=== PATIENT | male | born 1935 | race Caucasian/White ===

== ENCOUNTER 2021-03-12 12:46 | Inpatient (IN) ==
--- NOTE | 2021-03-12 12:53 | Emergency Department Note ---
HPI General Chief complaint: Shortness of Breath/Dyspnea Stated complaint: shortness of breath, hypoxia Time Seen by Provider: 03/12/21 12:52 Source: patient and EMS Mode of arrival: EMS Limitations: no limitations History of Present Illness HPI Narrative: 85-year-old male with past medical history of CKD, hypertension, hyperlipidemia, and gout presenting with shortness of breath. Patient states that he has not felt "well" for the last few days. Apparently his neighbors called EMS because patient slid out of his recliner today. He was noted to be satting 82% on room air on EMS arrival. Patient endorses a nonproductive cough but denies fever, headache, chest pain, blurry vision, or abdominal pain. Denies dysuria or hematuria. He has chronic venous stasis changes of bilateral lower extremities which are unchanged. He has received the Covid vaccine. He denies any prior cardiac history. Not on anticoagulation. Related Data Home Medications Medication Instructions Recorded Confirmed cholecalciferol (vitamin D3) 50 2,000 unit PO QDAY cap 07/28/16 03/01/21 mcg (2,000 unit) capsule haxvhjtl-wmt-coutp acid 300 1 tab PO QDAY tab 07/28/16 03/01/21 mcg-lycopene 600 mcg-lutein 300 mcg tablet (Centrum Silver Men) vit C,E,zinc,copper-qiast3d 250 1 cap PO QDAY 05/02/18 03/01/21 mg-lutein 5 mg-zeaxanthin 1 mg capsule (Ocuvite Adult 50 Plus) flaxseed 1,000 mg capsule 1,200 mg PO BID cap 08/22/19 03/01/21 omega-3 fatty acids 1,000 mg 1,200 mg PO QDAY cap 06/09/20 03/01/21 capsule (Fish Oil Concentrate) Previous Rx's Medication Instructions Recorded bicalutamide 50 mg tablet (Casodex) 50 mg PO QDAY #30 tab 04/06/20 ramipril 10 mg capsule 10 mg PO QDAY #90 cap 07/08/20 amlodipine 5 mg tablet 5 mg PO QHS #90 tab 08/10/20 hydrochlorothiazide 25 mg tablet 25 mg PO QDAY #90 tab 08/10/20 hydrocodone 5 mg-acetaminophen 325 1 tab PO Q6H PRN #8 tab 12/31/20 mg tablet pravastatin 20 mg tablet 20 mg PO QHS #90 tab 03/10/21 Allergies Allergy/AdvReac Type Severity Reaction Status Date / Time No Known Drug Allergies Allergy Verified 03/01/21 11:28 Review of Systems ROS ROS Narrative: Narrative: Constitutional: Reports chills; Denies fever Eyes: Denies vision change ENT ED: Denies ear pain or throat pain Cardiovascular: Denies chest pain or palpitations Respiratory: Reports shortness of breath and cough Gastrointestinal: Denies abdominal pain, nausea or vomiting Genitourinary: Denies dysuria or frequency Musculoskeletal: Denies back pain or joint swelling Integumentary: Denies rash Neurological: Reports weakness; Denies headache, numbness or dizziness Psychiatric: Denies anxiety Endocrine: Reports fatigue Hematological/Lymphatic: Denies easy bleeding PFSH Narrative Patient History Narrative: Narrative: Medical/Surgical/Family History All Active Problems (Updated 03/12/21 @ 17:02 by Luis Webster MD) Dysmetabolic syndrome X (Chronic) Gout (Chronic) Hyperlipemia (Chronic) Hypertension, essential (Chronic) Obesity (Chronic) Hx of appendectomy (Acute) Hypertension (Chronic) Chronic Kidney Disease (Chronic) Kidney stone on left side (Acute) Sprain of finger of right hand (Acute) CKD (chronic kidney disease) stage 2, GFR 60-89 ml/min (Chronic) Benign hypertension with chronic kidney disease, stage II (Chronic) Vitamin D deficiency (Chronic) Gout due to renal impairment (Chronic) Hyperkalemia, diminished renal excretion (Acute) Nephrolithiasis (Chronic) Gout attack (Acute) Annual physical exam (Acute) Elevated PSA (Acute) BPH w urinary obs/LUTS (Acute) Prostate cancer (Acute) Medicare annual wellness visit, initial (Acute) Annual physical exam (Acute) Renal calculus, right (Acute) Right flank pain (Acute) Hydronephrosis, right (Acute) Acute urinary retention (Acute) Peripheral vascular disease of lower extremity with ulceration (Acute) Wound of right lower extremity (Acute) Abnormal heart rhythm (Acute) UTI (urinary tract infection) (Acute) CHF (congestive heart failure) (Acute) OSMANY (acute kidney injury) (Acute) Medical History Abnormal heart rhythm Annual physical exam Annual physical exam Benign hypertension with chronic kidney disease, stage II Chronic Kidney Disease CKD (chronic kidney disease) stage 2, GFR 60-89 ml/min Dysmetabolic syndrome X Elevated PSA Gout Gout due to renal impairment Hyperlipemia Hypertension Hypertension, essential Kidney stone on left side Medicare annual wellness visit, initial Nephrolithiasis Obesity Sprain of finger of right hand Vitamin D deficiency Wound of right lower extremity Surgical History History of surgery Finger- 07/2019 Hx of appendectomy Family History brother Malignant neoplasm Cardiac disease Social History Smoking Status: Former smoker Alcohol Intake Frequency: former alcohol drinker Exam Narrative Narrative: Narrative: General Limitations: no limitations General appearance: Present other (Sleepy but arousable) Head Head: Present atraumatic and normocephalic Eye Eye: Present normal appearance, PERRL and EOMI; Absent scleral icterus, conjunctival injection or nystagmus ENT ENT: Present normal oropharynx and mucous membranes dry Neck Neck: Present normal inspection, full ROM and trachea midline; Absent meningismus or lymphadenopathy Chest Chest: Present symmetric chest wall rise Respiratory Respiratory: Present other (Coarse breath sounds at bilateral bases); Absent respiratory distress, wheezes, stridor, accessory muscle use or prolonged expiratory phase Cardiovascular Cardiovascular: Present regular rate and irregular rhythm; Absent systolic murmur or diastolic murmur Adbominal Abdominal: Present soft; Absent distention, tenderness, guarding, rebound, rigidity or organomegaly Extremities Extremities: Present other (Bilateral venous stasis changes present); Absent pretibial edema Back Back: Present normal inspection; Absent CVA tenderness (R), CVA tenderness (L) or spinous process tenderness Neurological Neurological: Present alert, CN II-XII intact and other (Oriented x2); Absent motor sensory deficit Expanded Neurological Patient oriented to: Present person and place Speech: Absent expressive aphasia or dysarthria CRANIAL NERVES: EOM function (II, III, IV, ): Normal, facial sensation (V): Normal, facial palsy (VII): Normal, gag reflex (IX): Normal, spinal accessory function (XI): Normal and tongue deviation (XII): Normal CEREBELLAR FUNCTION: finger to nose: Normal Motor strength - LUE: 5/5 Motor strength - RUE: 5/5 Motor strength - LLE: 5/5 Motor strength - RLE: 5/5 UPPER MOTOR NEURON EXAM: olesya neglect: Normal SENSORY EXAM UPPER EXTREMITY: Normal: light touch SENSORY EXAM LOWER EXTREMITY: Normal: light touch Coma Scale Eye Opening: Spontaneous Coma Scale Motor Response: Obeys Commands Coma Scale Verbal Response: Oriented Coma Scale Total: 15 Psychiatric Psychiatric: Present normal affect and normal mood Skin Skin: Present warm (WNL) and dry Course Vital Signs Vital signs: Vital Signs Temperature 102.7 F H 03/12/21 12:47 Pulse Rate 62 03/12/21 12:47 Respiratory Rate 20 03/12/21 12:47 Blood Pressure 126/48 03/12/21 12:47 Pulse Oximetry (%) 87 L 03/12/21 12:47 Temperature 99.8 F H 03/12/21 15:06 Pulse Rate 65 03/12/21 16:41 Respiratory Rate 23 H 03/12/21 16:41 Blood Pressure 109/45 03/12/21 16:41 Pulse Oximetry (%) 96 03/12/21 16:41 MDM MDM Narrative Medical decision making narrative: 85-year-old male presenting with generalized weakness. He is noted to be febrile and hypoxic on room air on arrival to the ED. EKG shows second-degree AV block, Mobitz type I with no ischemic changes noted. Rapid Covid swab is negative. Will obtain labs, cultures, chest x-ray, and UA. Normal saline bolus and IV Tylenol given. Will continue to monitor. 1510: Labs notable for leukocytosis to 26.6 and creatinine of 2.2. Urine dip is consistent with infection, UA and urine culture sent. He was given additional normal saline bolus and appeared to spontaneously convert to sinus rhythm with first-degree AV block. 1g of IV Rocephin ordered. Troponin is mildly elevated, chest x-ray consistent with CHF. 1600: Will admit for UTI, OSMANY, and CHF exacerbation. Our hospital currently has no beds available, will wait for possible discharges and in the meantime look for hospitals willing to accept the patient. 1700: Patient signed out to luis a MELENDEZ, Dr. Sprague. Lab Data Lab results reviewed: Yes I reviewed the patient's lab results. Result diagrams: 03/12/21 13:00 03/12/21 13:00 Labs: Lab Results 03/12/21 03/12/21 03/12/21 Range/Units 13:00 13:00 13:00 WBC 26.6 H (4.5-11.0) K/mcL RBC 3.05 L (4.63-6.08) M/mcL Hgb 8.9 L (13.7-17.5) g/dL Hct 28.8 L (40.1-51.0) % MCV 94.4 (80.0-100.0) fL MCH 29.2 (26.0-34.0) pg MCHC 30.9 L (31.0-36.0) g/dL RDW 18.5 H (11.5-14.5) % Plt Count 317 (140-440) K/mcL MPV 11.0 H (7.4-10.4) fL Seg Neutrophils % 81 H (38-78) % Band Neutrophils % 13 H (0-10) % Lymphocytes % 5 L (15-49) % Metamyelocytes % 1 % Platelet Estimate Normal (Normal) RBC Morphology Normal (Normal) Sodium 138 (133-145) mmol/L Potassium 4.1 (3.3-5.1) mmol/L Chloride 101 (96-108) mmol/L Carbon Dioxide 23 (22-30) mmol/L Anion Gap 14.0 (8.0-16.0) BUN 25 H (8-23) mg/dL Creatinine 2.2 H (0.7-1.2) mg/dL GFR Calculation 26 Glucose 81 (70-105) mg/dL Calcium 8.3 L (8.6-10.4) mg/dL Total Bilirubin 0.4 (0.1-1.0) mg/dL AST 27 (<40) U/L ALT 8 (<40) U/L Alkaline Phosphatase 63 (39-117) U/L Troponin T (<0.03) ng/mL NT-Pro-B Natriuret Pep (<450.0) pg/mL Total Protein 6.8 (5.9-8.4) gm/dL Albumin 2.5 L (3.2-5.2) gm/dL Globulin 4.3 H (2.2-3.7) gm/dL Albumin/Globulin Ratio 0.6 L (1.0-2.3) Procalcitonin 8.99 H (<0.10) ng/mL 03/12/21 03/12/21 03/12/21 Range/Units 13:00 13:00 15:24 WBC (4.5-11.0) K/mcL RBC (4.63-6.08) M/mcL Hgb (13.7-17.5) g/dL Hct (40.1-51.0) % MCV (80.0-100.0) fL MCH (26.0-34.0) pg MCHC (31.0-36.0) g/dL RDW (11.5-14.5) % Plt Count (140-440) K/mcL MPV (7.4-10.4) fL Seg Neutrophils % (38-78) % Band Neutrophils % (0-10) % Lymphocytes % (15-49) % Metamyelocytes % % Platelet Estimate (Normal) RBC Morphology (Normal) Sodium (133-145) mmol/L Potassium (3.3-5.1) mmol/L Chloride (96-108) mmol/L Carbon Dioxide (22-30) mmol/L Anion Gap (8.0-16.0) BUN (8-23) mg/dL Creatinine (0.7-1.2) mg/dL GFR Calculation Glucose (70-105) mg/dL Calcium (8.6-10.4) mg/dL Total Bilirubin (0.1-1.0) mg/dL AST (<40) U/L ALT (<40) U/L Alkaline Phosphatase (39-117) U/L Troponin T 0.09 H* 0.09 H* (<0.03) ng/mL NT-Pro-B Natriuret Pep 5122.0 H (<450.0) pg/mL Total Protein (5.9-8.4) gm/dL Albumin (3.2-5.2) gm/dL Globulin (2.2-3.7) gm/dL Albumin/Globulin Ratio (1.0-2.3) Procalcitonin (<0.10) ng/mL ED POC Tests ED POC Tests: KAEL - SARS Antigen Negative EKG Data EKG #1: EKG attestation: Yes I reviewed and interpreted this EKG. EKG results narrative: Second-degree AV block, Mobitz type I at 74 bpm with right bundle branch block present. No ST elevation or depression noted EKG #2: EKG attestation: Yes I reviewed and interpreted this EKG. and Yes There are no EKG findings of acute coronary syndrome EKG results narrative: Sinus rhythm at 75 bpm with first-degree AV block and right bundle branch block. No ST elevation or depression. When compared to previous EKG there are: other (Converted to first-degree AV block from prior EKG which showed second-degree AV block type I) Discharge Plan Patient/Caregiver Discharge Instructions Pt seen by FEEDER DRIVER/PA only: No Clinical Impression: UTI (urinary tract infection), CHF (congestive heart failure), OSMANY (acute kidney injury) Patient Disposition: Still a Patient Condition: Fair Follow up with: Akbar Piña MD [Primary Care Provider] - Prescriptions: No Action bicalutamide [Casodex] 50 mg tablet 50 mg PO QDAY Qty: 30 12RF ramipril 10 mg capsule 10 mg PO QDAY Qty: 90 6RF amlodipine 5 mg tablet 5 mg PO QHS Qty: 90 6RF hydrochlorothiazide 25 mg tablet 25 mg PO QDAY Qty: 90 6RF pravastatin 20 mg tablet 20 mg PO QHS Qty: 90 1RF cholecalciferol (vitamin D3) 2,000 unit capsule 2,000 unit PO QDAY 0RF hzunlcol-gfi-CR-lycopen-lutein [Centrum Silver Men] 300-600-300 mcg tablet 1 tab PO QDAY 0RF Ocuvite Adult 50 Plus 250-5-1 mg capsule 1 cap PO QDAY 0RF flaxseed 1,000 mg capsule 1,000 mg capsule 1,200 mg PO BID 0RF hydrocodone-acetaminophen 5-325 mg tablet 1 tab PO Q6H PRN (Reason: pain) Qty: 8 0RF omega-3 fatty acids [Fish Oil Concentrate] 1,000 mg capsule 1,200 mg PO QDAY 0RF
[2021-03-12] MEDS ORDERED: 0.9 % SODIUM CHLORIDE 1,000 ML IV ONE ×2 (13:11→14:18)
[2021-03-12] MEDS ORDERED: ACETAMINOPHEN 650 MG/65 ML BAG IV ONE (13:11)
[2021-03-12] MEDS ORDERED: ACETAMINOPHEN 1,000 MG/100 ML BAG IV ONE (13:31)
--- NOTE | 2021-03-12 13:56 | XRay Report ---
HISTORY: Fever, weakness, short of breath and hypoxia FINDINGS: There are thin linear bands of scar tissue adjacent to both diaphragms. These are chronic stable finding. The heart is mildly enlarged and has increased in size since 09/22/20. The pulmonary vessels are enlarged. There is no consolidating infiltrate, edema, mass or pleural effusion. 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 Humeral head is impinged against the acromion which is indirect evidence of a rotator cuff tear. IMPRESSION: Mild congestive heart failure Interpreted and Authenticated by: Bipin Silva 03/12/21
[2021-03-12 13:58] LABS: Hematocrit 28.8 % (40.1-51.0); Hemoglobin 8.9 g/dL (13.7-17.5); Mean Cell Volume 94.4 fL (80.0-100.0); Mean Corpuscular HGB Conc 30.9 g/dL (31.0-36.0); Platelet Count 317 K/mcL (140-440); RBC 3.05 M/mcL (4.63-6.08); Red Cell Distribution Width 18.5 % (11.5-14.5); WBC 26.6 K/mcL (4.5-11.0)
[2021-03-12 14:30] LABS: ALT/SGPT 8 U/L (<40); AST/SGOT 27 U/L (<40); Albumin 2.5 gm/dL (3.2-5.2); Albumin/Globulin Ratio 0.6 (1.0-2.3); Alkaline Phosphatase 63 U/L (39-117); Bilirubin,Total 0.4 mg/dL (0.1-1.0); Blood Urea Nitrogen 25 mg/dL (8-23); Calcium 8.3 mg/dL (8.6-10.4); Carbon Dioxide 23 mmol/L (22-30); Chloride 101 mmol/L (96-108); Globulin 4.3 gm/dL (2.2-3.7); Glomerular Filtration Rate 26; Glucose 81 mg/dL (70-105)
[2021-03-12] MEDS ORDERED: PIPERACILLIN SODIUM/TAZOBACTAM 3.375 GM in DEXTROSE 5% IN WATER 50 ML IV ONE (14:48)
[2021-03-12 15:56] LABS: Band Neutrophils % 13 % (0-10); Lymphocytes % 5 % (15-49); Metamyelocytes % 1 %; Platelet Estimate NORMAL (Normal); RBC Morphology NORMAL (Normal); Segmented Neutrophils % 81 % (38-78)
[2021-03-12 17:28] LABS: Appearance,Urine Clear (Clear); Bilirubin,Urine Small mg/dL (Negative); Color,Urine Yellow; Culture Indicated,Urine yes; Glucose,Urine (UA) Negative (Negative); Ketones,Urine Negative (Negative); Leukocyte Esterase,Urine Large /uL (Negative); Nitrate,Urine Negative (Negative); PH,Urine 5.5 (5.0-9.0); Urine Blood Moderate ery/mcL (Negative); Urine RBC 23 /hpf (0-3); Urine Squamous Epithelial Cell 0 /hpf (0-4); Urine WBC > 182 /hpf (0-4); Urobilinogen,Urine Normal
--- NOTE | 2021-03-12 17:33 | Emergency Department Note ---
Course Vital Signs Vital signs: Vital Signs Temperature 39.3 C H 03/12/21 12:47 Pulse Rate 62 03/12/21 12:47 Respiratory Rate 20 03/12/21 12:47 Blood Pressure 126/48 03/12/21 12:47 Pulse Oximetry (%) 87 L 03/12/21 12:47 Temperature 37.7 C H 03/12/21 15:06 Pulse Rate 63 03/12/21 17:16 Respiratory Rate 23 H 03/12/21 17:16 Blood Pressure 103/49 03/12/21 17:16 Pulse Oximetry (%) 96 03/12/21 17:16 MDM MDM Narrative Medical decision making narrative: Patient with urinary sepsis signed out to me by Dr. Webster awaiting a bed here, is now admitted here. Lab Data Result diagrams: 03/12/21 13:00 03/12/21 13:00 Labs: Lab Results 03/12/21 03/12/21 03/12/21 Range/Units 13:00 13:00 13:00 WBC 26.6 H (4.5-11.0) K/mcL RBC 3.05 L (4.63-6.08) M/mcL Hgb 8.9 L (13.7-17.5) g/dL Hct 28.8 L (40.1-51.0) % MCV 94.4 (80.0-100.0) fL MCH 29.2 (26.0-34.0) pg MCHC 30.9 L (31.0-36.0) g/dL RDW 18.5 H (11.5-14.5) % Plt Count 317 (140-440) K/mcL MPV 11.0 H (7.4-10.4) fL Seg Neutrophils % 81 H (38-78) % Band Neutrophils % 13 H (0-10) % Lymphocytes % 5 L (15-49) % Metamyelocytes % 1 % Platelet Estimate Normal (Normal) RBC Morphology Normal (Normal) Sodium 138 (133-145) mmol/L Potassium 4.1 (3.3-5.1) mmol/L Chloride 101 (96-108) mmol/L Carbon Dioxide 23 (22-30) mmol/L Anion Gap 14.0 (8.0-16.0) BUN 25 H (8-23) mg/dL Creatinine 2.2 H (0.7-1.2) mg/dL GFR Calculation 26 Glucose 81 (70-105) mg/dL Calcium 8.3 L (8.6-10.4) mg/dL Total Bilirubin 0.4 (0.1-1.0) mg/dL AST 27 (<40) U/L ALT 8 (<40) U/L Alkaline Phosphatase 63 (39-117) U/L Troponin T (<0.03) ng/mL NT-Pro-B Natriuret Pep (<450.0) pg/mL Total Protein 6.8 (5.9-8.4) gm/dL Albumin 2.5 L (3.2-5.2) gm/dL Globulin 4.3 H (2.2-3.7) gm/dL Albumin/Globulin Ratio 0.6 L (1.0-2.3) Procalcitonin 8.99 H (<0.10) ng/mL Urine Color Urine Appearance (Clear) Urine pH (5.0-9.0) Ur Specific [place] (1.000-1.035) Urine Protein (Negative) mg/dL Urine Glucose (UA) (Negative) mg/dL Urine Ketones (Negative) mg/dL Urine Occult Blood (Negative) amy/mcL Urine Nitrate (Negative) Urine Bilirubin (Negative) mg/dL Urine Urobilinogen mg/dL Ur Leukocyte Esterase (Negative) /uL Urine RBC (0-3) /hpf Urine WBC (0-4) /hpf Ur Squamous Epith Cells (0-4) /hpf Urine Bacteria (0) /hpf Ur Culture Indicated? 03/12/21 03/12/21 03/12/21 Range/Units 13:00 13:00 14:30 WBC (4.5-11.0) K/mcL RBC (4.63-6.08) M/mcL Hgb (13.7-17.5) g/dL Hct (40.1-51.0) % MCV (80.0-100.0) fL MCH (26.0-34.0) pg MCHC (31.0-36.0) g/dL RDW (11.5-14.5) % Plt Count (140-440) K/mcL MPV (7.4-10.4) fL Seg Neutrophils % (38-78) % Band Neutrophils % (0-10) % Lymphocytes % (15-49) % Metamyelocytes % % Platelet Estimate (Normal) RBC Morphology (Normal) Sodium (133-145) mmol/L Potassium (3.3-5.1) mmol/L Chloride (96-108) mmol/L Carbon Dioxide (22-30) mmol/L Anion Gap (8.0-16.0) BUN (8-23) mg/dL Creatinine (0.7-1.2) mg/dL GFR Calculation Glucose (70-105) mg/dL Calcium (8.6-10.4) mg/dL Total Bilirubin (0.1-1.0) mg/dL AST (<40) U/L ALT (<40) U/L Alkaline Phosphatase (39-117) U/L Troponin T 0.09 H* (<0.03) ng/mL NT-Pro-B Natriuret Pep 5122.0 H (<450.0) pg/mL Total Protein (5.9-8.4) gm/dL Albumin (3.2-5.2) gm/dL Globulin (2.2-3.7) gm/dL Albumin/Globulin Ratio (1.0-2.3) Procalcitonin (<0.10) ng/mL Urine Color Yellow Urine Appearance Clear (Clear) Urine pH 5.5 (5.0-9.0) Ur Specific [place] 1.020 (1.000-1.035) Urine Protein 100 mg/dl A (Negative) mg/dL Urine Glucose (UA) Negative (Negative) mg/dL Urine Ketones Negative (Negative) mg/dL Urine Occult Blood Moderate A (Negative) amy/mcL Urine Nitrate Negative (Negative) Urine Bilirubin Small A (Negative) mg/dL Urine Urobilinogen Normal mg/dL Ur Leukocyte Esterase Large A (Negative) /uL Urine RBC 23 H (0-3) /hpf Urine WBC > 182 H (0-4) /hpf Ur Squamous Epith Cells 0 (0-4) /hpf Urine Bacteria None (0) /hpf Ur Culture Indicated? yes 03/12/21 Range/Units 15:24 WBC (4.5-11.0) K/mcL RBC (4.63-6.08) M/mcL Hgb (13.7-17.5) g/dL Hct (40.1-51.0) % MCV (80.0-100.0) fL MCH (26.0-34.0) pg MCHC (31.0-36.0) g/dL RDW (11.5-14.5) % Plt Count (140-440) K/mcL MPV (7.4-10.4) fL Seg Neutrophils % (38-78) % Band Neutrophils % (0-10) % Lymphocytes % (15-49) % Metamyelocytes % % Platelet Estimate (Normal) RBC Morphology (Normal) Sodium (133-145) mmol/L Potassium (3.3-5.1) mmol/L Chloride (96-108) mmol/L Carbon Dioxide (22-30) mmol/L Anion Gap (8.0-16.0) BUN (8-23) mg/dL Creatinine (0.7-1.2) mg/dL GFR Calculation Glucose (70-105) mg/dL Calcium (8.6-10.4) mg/dL Total Bilirubin (0.1-1.0) mg/dL AST (<40) U/L ALT (<40) U/L Alkaline Phosphatase (39-117) U/L Troponin T 0.09 H* (<0.03) ng/mL NT-Pro-B Natriuret Pep (<450.0) pg/mL Total Protein (5.9-8.4) gm/dL Albumin (3.2-5.2) gm/dL Globulin (2.2-3.7) gm/dL Albumin/Globulin Ratio (1.0-2.3) Procalcitonin (<0.10) ng/mL Urine Color Urine Appearance (Clear) Urine pH (5.0-9.0) Ur Specific [place] (1.000-1.035) Urine Protein (Negative) mg/dL Urine Glucose (UA) (Negative) mg/dL Urine Ketones (Negative) mg/dL Urine Occult Blood (Negative) amy/mcL Urine Nitrate (Negative) Urine Bilirubin (Negative) mg/dL Urine Urobilinogen mg/dL Ur Leukocyte Esterase (Negative) /uL Urine RBC (0-3) /hpf Urine WBC (0-4) /hpf Ur Squamous Epith Cells (0-4) /hpf Urine Bacteria (0) /hpf Ur Culture Indicated? ED POC Tests ED POC Tests: KAEL - SARS Antigen Negative Discharge Plan Patient/Caregiver Discharge Instructions Pt seen by PUBLIC POLICY COORDINATOR/PA only: No Clinical Impression: UTI (urinary tract infection), CHF (congestive heart failure), OSMANY (acute kidney injury) Patient Disposition: Xfer As Inpt ([facility]) Condition: Fair Follow up with: Akbar Piña MD [Primary Care Provider] - Prescriptions: No Action bicalutamide [Casodex] 50 mg tablet 50 mg PO QDAY Qty: 30 12RF ramipril 10 mg capsule 10 mg PO QDAY Qty: 90 6RF amlodipine 5 mg tablet 5 mg PO QHS Qty: 90 6RF hydrochlorothiazide 25 mg tablet 25 mg PO QDAY Qty: 90 6RF pravastatin 20 mg tablet 20 mg PO QHS Qty: 90 1RF cholecalciferol (vitamin D3) 2,000 unit capsule 2,000 unit PO QDAY 0RF ivycdhar-dtm-NF-lycopen-lutein [Centrum Silver Men] 300-600-300 mcg tablet 1 tab PO QDAY 0RF Ocuvite Adult 50 Plus 250-5-1 mg capsule 1 cap PO QDAY 0RF flaxseed 1,000 mg capsule 1,000 mg capsule 1,200 mg PO BID 0RF hydrocodone-acetaminophen 5-325 mg tablet 1 tab PO Q6H PRN (Reason: pain) Qty: 8 0RF omega-3 fatty acids [Fish Oil Concentrate] 1,000 mg capsule 1,200 mg PO QDAY 0RF
[2021-03-12] MEDS ORDERED: 0.9 % SODIUM CHLORIDE 500 ML IV ONE (18:29)
--- NOTE | 2021-03-12 18:59 | Internal Med History&Physical ---
HPI History of Present Illness Patient information: Note initiated : 03/12/21 at 6:30 pm Service Date, if different from initiated Date: [] Patient: Vinnie Alatorre 85 y/o M admitted on for shortness of breath, hypoxia. Chief Complaint: [] History of present illness: Mr. 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 The patient follows with urology and was last seen in clinic in February 2021 and was doing well at that time per the notes. The patient also follows with Dr. Hines in the wound care for his lower extremity wounds. The patient lives alone and spends his time working on wood projects and vehicles. The patient presented to the ED because he was not feeling well for the last few days. His neighbors called EMS because he slid out of his recliner. EMS noted the patient to be hypoxic with a sat uration of 82% on room air. In the ED the patient was found to be septic with a fever, hypotension, leukocytosis and an acute on chronic kidney disease injury. The patient does not have any complaints except he generally feels weak and has had urinary incontinence recently. Urinalysis was suggestive of a UTI. Chest xray showed mild congestive heart failure. Lactic acid was 2,4. The patient received Zosyn, IV fluid and oxygen supplementation via nasal canula. Hospital medicine was consulted to admit the patient. Review of systems Constitutional: positive for fatigue Eyes: no vision changes or pain Cardiovascular: no chest pain, no palpitations Respiratory: no cough or dyspnea Gastrointestinal: no abdominal pain, no nausea, vomiting, or diarrhea Genitourinary: positive for urinary incontinence Musculoskeletal: no arthralgia or myalgia Integumentary: positive for left lower extremity skin wound Neurological: no focal weakness or numbness Psychiatric: no anxiety or depression Physical exam Head: Atraumatic, normal inspection. Eyes: normal appearance, no scleral icterus. Neck: full ROM Respiratory: no respiratory distress, bibasilar crackles. Cardiovascular: normal rate and rhythm, S1, S2. GI/Abdominal: soft, nontender, no guarding. Extremities: full range of motion, nontender. Neurological: CN II-XII intact, intact motor, intact sensation. Psychiatric: normal mood. Skin: bilateral lower extremity venous stasis, wound on left lateral leg PFSH PFSH All Active Problems (Updated 03/12/21 @ 17:02 by Luis Webster MD) Dysmetabolic syndrome X (Chronic) Gout (Chronic) Hyperlipemia (Chronic) Hypertension, essential (Chronic) Obesity (Chronic) Hx of appendectomy (Acute) Hypertension (Chronic) Chronic Kidney Disease (Chronic) Kidney stone on left side (Acute) Sprain of finger of right hand (Acute) CKD (chronic kidney disease) stage 2, GFR 60-89 ml/min (Chronic) Benign hypertension with chronic kidney disease, stage II (Chronic) Vitamin D deficiency (Chronic) Gout due to renal impairment (Chronic) Hyperkalemia, diminished renal excretion (Acute) Nephrolithiasis (Chronic) Gout attack (Acute) Annual physical exam (Acute) Elevated PSA (Acute) BPH w urinary obs/LUTS (Acute) Prostate cancer (Acute) Medicare annual wellness visit, initial (Acute) Annual physical exam (Acute) Renal calculus, right (Acute) Right flank pain (Acute) Hydronephrosis, right (Acute) Acute urinary retention (Acute) Peripheral vascular disease of lower extremity with ulceration (Acute) Wound of right lower extremity (Acute) Abnormal heart rhythm (Acute) UTI (urinary tract infection) (Acute) CHF (congestive heart failure) (Acute) OSMANY (acute kidney injury) (Acute) Medical History Abnormal heart rhythm Annual physical exam Annual physical exam Benign hypertension with chronic kidney disease, stage II Chronic Kidney Disease CKD (chronic kidney disease) stage 2, GFR 60-89 ml/min Dysmetabolic syndrome X Elevated PSA Gout Gout due to renal impairment Hyperlipemia Hypertension Hypertension, essential Kidney stone on left side Medicare annual wellness visit, initial Nephrolithiasis Obesity Sprain of finger of right hand Vitamin D deficiency Wound of right lower extremity Surgical History History of surgery Finger- 07/2019 Hx of appendectomy Family History brother Malignant neoplasm Cardiac disease Social History marital status: single alcohol intake frequency: former alcohol drinker MEDS/ALLERGIES Home Medications and Allergies Home Medications Medication Instructions Recorded Confirmed Type cholecalciferol (vitamin D3) 50 2,000 unit PO QDAY cap 07/28/16 03/12/21 History mcg (2,000 unit) capsule [id number] acid 300 1 tab PO QDAY tab 07/28/16 03/12/21 History mcg-lycopene 600 mcg-lutein 300 mcg tablet (Centrum Silver Men) vit C,E,zinc,copper-tkisn0a 250 1 cap PO QDAY 05/02/18 03/12/21 History mg-lutein 5 mg-zeaxanthin 1 mg capsule (Ocuvite Adult 50 Plus) flaxseed 1,000 mg capsule 1,200 mg PO BID cap 08/22/19 03/12/21 History bicalutamide 50 mg tablet (Casodex) 50 mg PO QDAY #30 tab 04/06/20 03/12/21 Rx omega-3 fatty acids 1,000 mg 1,200 mg PO QDAY cap 06/09/20 03/12/21 History capsule (Fish Oil Concentrate) ramipril 10 mg capsule 10 mg PO QDAY #90 cap 07/08/20 03/12/21 Rx amlodipine 5 mg tablet 5 mg PO QHS #90 tab 08/10/20 03/12/21 Rx hydrochlorothiazide 25 mg tablet 25 mg PO QDAY #90 tab 08/10/20 03/12/21 Rx hydrocodone 5 mg-acetaminophen 325 1 tab PO Q6H PRN #8 tab 12/31/20 03/12/21 Rx mg tablet pravastatin 20 mg tablet 20 mg PO QHS #90 tab 03/10/21 03/12/21 Rx Allergies Allergy/AdvReac Type Severity Reaction Status Date / Time No Known Drug Allergies Allergy Verified 03/01/21 11:28 EXAM Constitutional Vitals: Temp Pulse Resp BP Pulse Ox 99.8 F H 62 19 101/51 96 03/12/21 15:06 03/12/21 17:47 03/12/21 17:47 03/12/21 17:47 03/12/21 17:47 DATA Data Completed and Pending Labs: Labs from last 24 hours 03/12/21 03/12/21 03/12/21 15:24 14:30 13:00 WBC RBC Hgb Hct MCV MCH MCHC RDW Plt Count MPV Seg Neutrophils % Band Neutrophils % Lymphocytes % Metamyelocytes % Platelet Estimate RBC Morphology Sodium Potassium Chloride Carbon Dioxide Anion Gap BUN Creatinine GFR Calculation Glucose Calcium Total Bilirubin AST ALT Alkaline Phosphatase Troponin T 0.09 H* NT-Pro-B Natriuret Pep 5122.0 H Total Protein Albumin Globulin Albumin/Globulin Ratio Procalcitonin Urine Color Yellow Urine Appearance Clear Urine pH 5.5 Ur Specific [place] 1.020 Urine Protein 100 mg/dl A Urine Glucose (UA) Negative Urine Ketones Negative Urine Occult Blood Moderate A Urine Nitrate Negative Urine Bilirubin Small A Urine Urobilinogen Normal Ur Leukocyte Esterase Large A Urine RBC 23 H Urine WBC > 182 H Ur Squamous Epith Cells 0 Urine Bacteria None Ur Culture Indicated? yes 03/12/21 03/12/21 03/12/21 13:00 13:00 13:00 WBC RBC Hgb Hct MCV MCH MCHC RDW Plt Count MPV Seg Neutrophils % Band Neutrophils % Lymphocytes % Metamyelocytes % Platelet Estimate RBC Morphology Sodium 138 Potassium 4.1 Chloride 101 Carbon Dioxide 23 Anion Gap 14.0 BUN 25 H Creatinine 2.2 H GFR Calculation 26 Glucose 81 Calcium 8.3 L Total Bilirubin 0.4 AST 27 ALT 8 Alkaline Phosphatase 63 Troponin T 0.09 H* NT-Pro-B Natriuret Pep Total Protein 6.8 Albumin 2.5 L Globulin 4.3 H Albumin/Globulin Ratio 0.6 L Procalcitonin 8.99 H Urine Color Urine Appearance Urine pH Ur Specific [place] Urine Protein Urine Glucose (UA) Urine Ketones Urine Occult Blood Urine Nitrate Urine Bilirubin Urine Urobilinogen Ur Leukocyte Esterase Urine RBC Urine WBC Ur Squamous Epith Cells Urine Bacteria Ur Culture Indicated? 03/12/21 13:00 WBC 26.6 H RBC 3.05 L Hgb 8.9 L Hct 28.8 L MCV 94.4 MCH 29.2 MCHC 30.9 L RDW 18.5 H Plt Count 317 MPV 11.0 H Seg Neutrophils % 81 H Band Neutrophils % 13 H Lymphocytes % 5 L Metamyelocytes % 1 Platelet Estimate Normal RBC Morphology Normal Sodium Potassium Chloride Carbon Dioxide Anion Gap BUN Creatinine GFR Calculation Glucose Calcium Total Bilirubin AST ALT Alkaline Phosphatase Troponin T NT-Pro-B Natriuret Pep Total Protein Albumin Globulin Albumin/Globulin Ratio Procalcitonin Urine Color Urine Appearance Urine pH Ur Specific [place] Urine Protein Urine Glucose (UA) Urine Ketones Urine Occult Blood Urine Nitrate Urine Bilirubin Urine Urobilinogen Ur Leukocyte Esterase Urine RBC Urine WBC Ur Squamous Epith Cells Urine Bacteria Ur Culture Indicated? 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 The patient has a wound on his left leg that is a potential source of sepsis however there does not appear to be cellulitis in that area. Additionally the patient has an acute on chronic kidney disease injury and appears to be in mild congestive heart failure. #Severe sepsis likely secondary to complicated UTI #Acute hypoxic respiratory failure secondary to heart failure (unspecified) #Acute on chronic kidney disease injury #Mildly elevated troponin secondary to type II UT due to sepsis #Generalized weakness secondary to sepsis #Left lower extremity wound (less likely to be the source of sepsis) #Essential hypertension #Hyperlipidemia #History of Mobitz II #History of renal stones #History of gout #Prostate cancer on androgen deprivation therapy Plan: -Continue Zosyn IV for now for complicated UTI and recent urologic procedures. -Continue IV fluid for severe sepsis and hypotension. -Follow urine and blood cultures. -Follow renal function and urine output. -Monitor volume status. -Consider renal imaging if OSMANY does not resolve. -TTE ordered. -Hold home antihypertensives. -Continue home Pravastatin and Bicalutamide. -pvc monitor -PT consult. -DVT ppx: heparin SQ -Code status: DNR/DNI -Disposition: will depend on improvement in generalized weakness, the patient lives alone. Time Spent With Patient Time: Total time spent is greater than 50% in coordination of care (as documented) at patient's floor/unit and/or counseling patient:
[2021-03-12] MEDS ORDERED: ONDANSETRON 4 MG/2 ML VIAL IV PRN (19:55)
[2021-03-12] MEDS ORDERED: SENNOSIDES 1 TABLET PO PRN (19:55)
[2021-03-12] MEDS ORDERED: LACTULOSE 20 GM/30 ML ORAL.SOL PO PRN (19:55)
[2021-03-12] MEDS: 0.9 % SODIUM CHLORIDE 10 ML SYRINGE IV SCH (20:36)
[2021-03-12] MEDS: SIMVASTATIN 10 MG TABLET PO SCH (21:35)
[2021-03-12] MEDS: DOCUSATE SODIUM 100 MG CAPSULE PO SCH (21:35)
[2021-03-12] MEDS: FLAXSEED PO SCH (21:36)
[2021-03-12] MEDS: PIPERACILLIN SODIUM/TAZOBACTAM 4.5 GM in DEXTROSE 5% IN WATER 50 ML IV SCH (21:36)
[2021-03-12] MEDS: HEPARIN 5,000 UNIT/ML VIAL SQ SCH (21:36)
[2021-03-12 22:52] LABS: ALT/SGPT 10 U/L (<40); AST/SGOT 36 U/L (<40); Albumin 2.4 gm/dL (3.2-5.2); Albumin/Globulin Ratio 0.6 (1.0-2.3); Alkaline Phosphatase 60 U/L (39-117); Bilirubin,Direct < 0.2 mg/dL (0-0.3); Bilirubin,Total 0.3 mg/dL (0.1-1.0); Blood Urea Nitrogen 25 mg/dL (8-23); Calcium 8.2 mg/dL (8.6-10.4); Carbon Dioxide 24 mmol/L (22-30); Chloride 104 mmol/L (96-108); Globulin 4.3 gm/dL (2.2-3.7); Glomerular Filtration Rate 26; Glucose 88 mg/dL (70-105); Lactate Dehydrogenase 220 U/L (135-225); Phosphorous 4.5 mg/dL (2.5-4.5); Triglycerides 88 mg/dL (<150); Uric Acid 8.1 mg/dL (2.5-8.0)
[2021-03-13] MEDS ORDERED: MAGNESIUM SULFATE 2 GM/50 ML BAG IV ONE ×2 (00:50→02:12)
[2021-03-13] MEDS: 0.9 % SODIUM CHLORIDE 10 ML SYRINGE IV SCH ×6 (02:17→23:35)
[2021-03-13] MEDS: ACETAMINOPHEN 325 MG TABLET PO PRN ×2 (05:05→23:35)
[2021-03-13] MEDS: PIPERACILLIN SODIUM/TAZOBACTAM 4.5 GM in DEXTROSE 5% IN WATER 50 ML IV SCH (05:21)
[2021-03-13 07:38] LABS: Hematocrit 27.3 % (40.1-51.0); Hemoglobin 8.6 g/dL (13.7-17.5); Mean Cell Volume 94.8 fL (80.0-100.0); Mean Corpuscular HGB Conc 31.5 g/dL (31.0-36.0); Mean Platelet Volume 10.7 fL (7.4-10.4); Platelet Count 263 K/mcL (140-440); RBC 2.88 M/mcL (4.63-6.08); Red Cell Distribution Width 18.7 % (11.5-14.5); WBC 27.9 K/mcL (4.5-11.0)
[2021-03-13 07:56] LABS: Iron 6 ug/dL (61-157); TIBC Calculation 136 ug/dl (228-428); Transferrin % Saturation 4 % (20-50)
[2021-03-13 08:27] LABS: Albumin 2.5 gm/dL (3.2-5.2); Calcium 8.2 mg/dL (8.6-10.4); Phosphorous 3.9 mg/dL (2.5-4.5)
[2021-03-13] MEDS: HEPARIN 5,000 UNIT/ML VIAL SQ SCH ×2 (08:41→21:06)
[2021-03-13] MEDS: DOCUSATE SODIUM 100 MG CAPSULE PO SCH ×2 (08:41→21:06)
[2021-03-13] MEDS: MULTIVIT,THER IRON,CA,FA & MIN 1 TABLET PO SCH (08:41)
[2021-03-13] MEDS: FLAXSEED PO SCH ×2 (08:42→21:06)
[2021-03-13] MEDS: BICALUTAMIDE 50 MG TABLET PO SCH ×2 (08:44→09:08)
[2021-03-13 09:35] LABS: Anisocytosis 2+ (None Seen); Band Neutrophils % 14 % (0-10); Lymphocytes % 7 % (15-49); Monocytes % (Manual) 5 % (1-12); Platelet Estimate NORMAL (Normal); RBC Morphology ABNORMAL (Normal); Segmented Neutrophils % 74 % (38-78)
[2021-03-13] MEDS ORDERED: CEFEPIME 1 GM VIAL IV SCH (10:00)
[2021-03-13] MEDS ORDERED: NOREPINEPHRINE BITARTRATE 16 MG in 0.9 % SODIUM CHLORIDE 234 ML IV SCH (12:30)
[2021-03-13] MEDS ORDERED: 0.9 % SODIUM CHLORIDE 250 ML IV PRN (12:30)
--- NOTE | 2021-03-13 15:11 | Internal Med Progress Note ---
SUBJECTIVE Subjective Patient information: Note initiated : 03/13/21 at 3:09 pm Service Date, if different from initiated Date: [] Patient: Vinnie Alatorre 85 y/o M admitted on 03/12/21 for shortness of breath, hypoxia. Chief Complaint: [] Interval history: Mr. 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 The patient follows with urology and was last seen in clinic in February 2021 and was doing well at that time per the notes. The patient also follows with Dr. Hines in the wound care for his lower extremity wounds. The patient lives alone and spends his time working on wood projects and vehicles. The patient presented to the ED because he was not feeling well for the last few days. His neighbors called EMS because he slid out of his recliner. EMS noted the patient to be hypoxic with a saturation of 82% on room air. In the ED the patient was found to be septic with a fever, hypotension, leukocytosis and an acute on chronic kidney disease injury. The patient does not have any complaints except he generally feels weak and has had urinary incontinence recently. Urinalysis was suggestive of a UTI. Chest xray showed mild congestive heart failure. Lactic acid was 2,4. The patient received Zosyn, IV fluid and oxygen supplementation via nasal canula. Hospital medicine was consulted to admit the patient. 03/13 2 blood cultures growing gram negative bacillus, CT KUB (no contrast) showed two left ureteral stones and left hydronephrosis as well as cholelithiasis and findings suspicious for cholecystitis and choledocholithiasis. Urine culture pending. Point of care ultrasound exam did not elicit a sonographic guillermo's signs. Suspect UTI to be the cause of the patient's sepsis. 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 Discussed with urology, Dr. Freitas, who recommended transfer to a higher level of care for urgent intervention either by urology or interventional radiology. Physical exam Head: Atraumatic, normal inspection. Eyes: normal appearance, no scleral icterus. Neck: full ROM Respiratory: no respiratory distress, bibasilar crackles. Cardiovascular: normal rate and rhythm, S1, S2. GI/Abdominal: soft, nontender, no guarding. Extremities: full range of motion, nontender. Neurological: CN II-XII intact, intact motor, intact sensation. Psychiatric: normal mood. Skin: bilateral lower extremity venous stasis, wound on left lateral leg Constitutional Vitals: Vital Signs Temp Pulse Resp BP Pulse Ox 97.2 F 87 20 93/52 93 03/13/21 12:01 03/13/21 08:03 03/13/21 12:01 03/13/21 12:01 03/13/21 12:01 Period Temp Pulse Resp BP Sys/Luna Pulse Ox Last 24 Hr 97.2 F-99.9 F 33-92 14-29 93-135/27-95 92-99 Intake and Output 03/13/21 03/13/21 03/13/21 05:59 13:59 21:59 Intake Total 720 50 Output Total 527 Balance 193 50 Intake & Output: Intake & Output 03/13/21 03/13/21 03/13/21 05:59 13:59 21:59 Intake Total 720 50 Output Total 527 Balance 193 50 Intake: IV 600 50 Sodium Chloride 0.9% 500 ml @ 500 Wide Open IV BOLUS ONE Rx#: [id number] Zosyn 4.5 gm In Dextrose 5% in 50 50 Water 50 ml @ 100 mls/hr IV Q8H [facility] Rx#:[id number] Oral 120 Output: Void Amount 525 # of times incontinent of urine 2 Other: Meal Breakfast Percent of Meal Consumed 50% Feeding Ability Independent Urine Appearance Clear Urine Color Bright Yellow Urine Odor Normal Stool Size Small Large Stool Color Brown Brown Yellow Stool Consistency Loose Soft # Bowel Movements 1 1 # of times incontinent of 1 1 Bowels OBJ DATA Labs CBC & Chem 7: 03/13/21 05:30 03/13/21 05:30 Labs: Abnormal Lab Results 03/13/21 03/13/21 03/13/21 05:30 05:30 05:30 WBC 27.9 H RBC 2.88 L Hgb 8.6 L Hct 27.3 L MCHC RDW 18.7 H MPV 10.7 H Seg Neutrophils % Band Neutrophils % 14 H Lymphocytes % 7 L RBC Morphology Abnormal A Anisocytosis 2+ A BUN 28 H Creatinine 2.6 H Glucose 69 L Uric Acid Calcium 8.2 L Magnesium Iron 6 L TIBC 136 L Transferrin % Sat 4 L Troponin T NT-Pro-B Natriuret Pep Albumin 2.5 L Globulin Albumin/Globulin Ratio Procalcitonin Urine Protein Urine Occult Blood Urine Bilirubin Ur Leukocyte Esterase Urine RBC Urine WBC 03/12/21 03/12/21 03/12/21 20:16 15:24 14:30 WBC RBC Hgb Hct MCHC RDW MPV Seg Neutrophils % Band Neutrophils % Lymphocytes % RBC Morphology Anisocytosis BUN 25 H Creatinine 2.2 H Glucose Uric Acid 8.1 H Calcium 8.2 L Magnesium 1.5 L Iron TIBC Transferrin % Sat Troponin T 0.09 H* NT-Pro-B Natriuret Pep Albumin 2.4 L Globulin 4.3 H Albumin/Globulin Ratio 0.6 L Procalcitonin Urine Protein 100 mg/dl A Urine Occult Blood Moderate A Urine Bilirubin Small A Ur Leukocyte Esterase Large A Urine RBC 23 H Urine WBC > 182 H 03/12/21 03/12/21 03/12/21 13:00 13:00 13:00 WBC RBC Hgb Hct MCHC RDW MPV Seg Neutrophils % Band Neutrophils % Lymphocytes % RBC Morphology Anisocytosis BUN Creatinine Glucose Uric Acid Calcium Magnesium Iron TIBC Transferrin % Sat Troponin T 0.09 H* NT-Pro-B Natriuret Pep 5122.0 H Albumin Globulin Albumin/Globulin Ratio Procalcitonin 8.99 H Urine Protein Urine Occult Blood Urine Bilirubin Ur Leukocyte Esterase Urine RBC Urine WBC 03/12/21 03/12/21 13:00 13:00 WBC 26.6 H RBC 3.05 L Hgb 8.9 L Hct 28.8 L MCHC 30.9 L RDW 18.5 H MPV 11.0 H Seg Neutrophils % 81 H Band Neutrophils % 13 H Lymphocytes % 5 L RBC Morphology Anisocytosis BUN 25 H Creatinine 2.2 H Glucose Uric Acid Calcium 8.3 L Magnesium Iron TIBC Transferrin % Sat Troponin T NT-Pro-B Natriuret Pep Albumin 2.5 L Globulin 4.3 H Albumin/Globulin Ratio 0.6 L Procalcitonin Urine Protein Urine Occult Blood Urine Bilirubin Ur Leukocyte Esterase Urine RBC Urine WBC Meds: Medications Acetaminophen (Acetaminophen 325 Mg Tablet) 650 mg PO Q6HP PRN; Protocol PRN Reason: Per Pain Protocol/Fever > 101 Last Admin: 03/13/21 05:05 Dose: 650 mg Documented by: Bicalutamide (Bicalutamide 50 Mg Tablet) 50 mg PO QDAY [facility] Last Admin: 03/13/21 09:08 Dose: 50 mg Documented by: Cefepime HCl (Cefepime 1 Gm Vial) 1 gm IV Q12 [facility]; Protocol Last Admin: 03/13/21 09:43 Dose: 1 gm Documented by: Docusate Sodium (Docusate Sodium 100 Mg Capsule) 100 mg PO BID [facility] Last Admin: 03/13/21 08:41 Dose: 100 mg Documented by: Heparin Sodium (Porcine) (Heparin 5,000 Unit/Ml Vial) 5,000 unit SQ Q12 [facility] Last Admin: 03/13/21 08:41 Dose: 5,000 unit Documented by: Norepinephrine Bitartrate 16 (mg/ Sodium Chloride) 250 mls @ 9.375 mls/hr IV Q24H [facility]; Protocol Sodium Chloride (Sodium Chloride 0.9%) 250 mls @ 20 mls/hr IV .[id number] PRN PRN Reason: Blood Pressure - Low Iron Carb/Multivit/Crown Pouncer/Folic Acid (Multivit,Ther Iron,Ca,Fa & Min 1 Tablet) 1 tab PO DAILY [facility] Last Admin: 03/13/21 08:41 Dose: 1 tab Documented by: Lactulose (Lactulose 20 Gm/30 Ml Oral.Reta) 10 gm PO DAILYP PRN PRN Reason: Constipation Ondansetron HCl (Ondansetron 4 Mg/2 Ml Vial) 4 mg IV Q4HP PRN; Protocol PRN Reason: Nausea And Vomiting Flaxseed 1,200 Mg (Capsule) 1 dose PO BID [facility] Last Admin: 03/13/21 08:42 Dose: Not Given Documented by: Senna (Sennosides 1 Tablet) 2 tab PO HSP PRN PRN Reason: Constipation Simvastatin (Simvastatin 10 Mg Tablet) 10 mg PO HS [facility] Last Admin: 03/12/21 21:35 Dose: 10 mg Documented by: Sodium Chloride (0.9 % Sodium Chloride 10 Ml Syringe) 10 ml IV Q8 [facility] Last Admin: 03/13/21 12:17 Dose: 10 ml Documented by: A/P Narrative A/P Narrative: Assessment: 85 year old male with a history of hypertension, hyperlipidemia, CKD, gout, 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 Workup also revealed cholelithiasis with radiologic evidence of cholecystitis and choledocholithiasis. #Severe sepsis likely secondary to pyelonephritis #Gram negative bacteremia likely secondary to pyelonephritis #Cholelithiasis with radiologic evidence of cholecystitis #Choledocholithiasis #Acute hypoxic respiratory failure secondary to heart failure (unspecified) #Acute on chronic kidney disease injury #Mildly elevated troponin secondary to type II LA due to sepsis #Generalized weakness secondary to sepsis #Left lower extremity wound (less likely to be the source of sepsis) #Essential hypertension #Hyperlipidemia #History of Mobitz II #History of renal stones #History of gout #Prostate cancer on androgen deprivation therapy Plan: -Ceftriaxone and Flagyl for UTI as well as possible cholecystitis -Follow urine and blood cultures. -Transfer to high level of care for obstructing ureteral stones in the setting of UTI -Follow renal function and urine output. -Monitor volume status. -TTE results pending. -Hold home antihypertensives. -Continue home Pravastatin and Bicalutamide. -surveillance system monitor -PT consult. -DVT ppx: heparin SQ -Code status: DNR/DNI -Disposition: high level of care Time Spent With Patient Time: Total time spent is greater than 50% in coordination of care (as documented) at patient's floor/unit and/or counseling patient: QUALITY Stroke Symptom Onset Unknown: No VTE Deep Vein Thrombosis/Pulmonary Embolism Present on Admission: No
--- NOTE | 2021-03-13 15:15 | Cat Scan Report ---
History: Kidney stones, short of breath and hypoxia, left-sided obstructive nephropathy TECHNIQUE: The patient was imaged without contrast in axial plane at 2.5 mm intervals from above the diaphragm through the symphysis pubis. Sagittal and coronal reformats were created. The radiation exposure was limited using dose reduction technology. FINDINGS: Small bilateral layering pleural effusions are present. There are several bands of atelectasis in both lower lobes, left worse than right. Small hiatus hernia is present.. Evaluation of abdominal organs without contrast is somewhat limited. The liver and spleen are normal in size and homogeneous. The gallbladder is filled with innumerable small calcified stones. The gallbladder wall is thickened and inflamed. There are multiple calcifications within the wall of the fundus. The intraluminal stones are unchanged from the prior CT on 09/21/20. The inflammation and stones within the wall of a new finding. The bile ducts are difficult to visualize. There appears to be a 2 mm stone in the distal common bile duct near the ampulla.. There is moderate inflammation in the maxx hepatis. There is subtle stranding of the fat around the body and tail of the pancreas but the pancreas itself does not appear to be inflamed. Pancreatic duct is nondilated. The adrenals are normal and symmetric. There are several stones in the left kidney. The largest is at the ureteropelvic junction and is causing mild hydronephrosis. It measures 1.1 x 1.4 x 1.6 cm. This was located in the lower pole infundibulum on the prior CT. There are three other calyceal stones in left kidney. The largest of these is in the upper pole and measures 9 x 11 mm. There stranding of fat around the mid and distal left ureter. In the distal left ureter approximately 1.5 cm above the ureterovesical junction there is a 4.5 x 6 mm calculus. This is new since the prior exam. Anteriorly in the middle third of the right kidney there is a nonobstructing calyceal stone which measures 3 x 5 mm. There are a few moderate-sized cortical cysts in right kidney. The largest is in the lower pole measures 3.7 x 4.1 cm. There is no hydronephrosis in right kidney. The right ureter is normal and there are no stones within the right ureter. Urinary bladder is decompressed. There are no stones within the lumen. Prostate is moderately enlarged. Seminal vesicles are small. There are couple diverticula in the descending and sigmoid colon. There is no acute diverticulitis or bowel obstruction. No ascites or adenopathy are present. Degenerative disc disease and arthritis are present throughout the lumbar spine. There is severe spinal canal stenosis at L4-5 and moderate spinal canal stenosis at L3-4. IMPRESSION: Hydronephrosis in the left kidney due to a 4.5 x 6 mm stone in the distal ureter and a 1.4 x 1.6 cm stone at the ureteropelvic junction Cholelithiasis and cholecystitis Choledocholithiasis Dr. Yates was called with the report Interpreted and Authenticated by: Bipin Silva 03/13/21
[2021-03-13] MEDS: metroNIDAZOLE 500 MG/100 ML BAG IV SCH ×2 (16:18→23:34)
[2021-03-13] MEDS: cefTRIAXone 2 GM in DEXTROSE 5% IN WATER 50 ML IV SCH (16:18)
--- NOTE | 2021-03-13 18:04 | General Surgery Consult Note ---
HPI Data of Consult Patient: new to practice Consult date: 03/13/21 Requesting physician: Frank Yates Primary Care Provider: Akbar Piña MD Consult Narrative Patient Information: Note initiated : 03/13/21 at 5:49 pm Service Date, if different from initiated Date: [] Patient: Vinnie Alatorre 85 y/o M admitted on 03/12/21 for shortness of breath, hypoxia. Chief Complaint: [] Reason for consult: Lethargy, bacteremia due to urosepsis, gallstones disease cc:: CC: Frank Yates MD 85-year-old male admitted with increasing malaise, and evidence of urosepsis secondary to true obstructing stones of the left ureter. Patient has leukocytosis 27,000. He recently developed hypotension requiring Levophed. He was noted to have multiple gallstones on CT however there is no history or physical findings to support symptomatic gallstone disease. Though he has a radiographic interpretation of having choledocholithiasis his bilirubin, alkaline phosphatase and other transaminases are totally normal. He does not have any abdominal or epigastric tenderness. Constitutional Constitutional: Present fatigue, lethargy and malaise Cardiovascular Cardiovascular: Present dyspnea on exertion, edema (Bilateral chronic stasis edema), leg ulcers and lightheadedness; Absent chest pain with activity or rapid heart rate Respiratory Respiratory: Present dyspnea on exertion Gastrointestinal Gastrointestinal: Absent abdominal pain, change in bowel habits, dyspepsia, early satiety, heartburn, nausea or vomiting Genitourinary Genitourinary: flank pain Musculoskeletal Musculoskeletal: Present abnormal gait, arthralgias and myalgias Integumentary Integumentary: Present skin ulcer Neurological Neurological: Present abnormal hearing and confusion; Absent tingling Psychiatric Psychiatric: Present depression and memory loss Hematologic/Lymphatic Hematologic/Lymphatic: Absent easy bleeding, easy bruising or lymphadenopathy Allergic/Immunologic Allergic/Immunologic: Absent tongue swelling, throat swelling, uticaria or lip swelling PFSH PFSH All Active Problems (Updated 03/13/21 @ 18:02 by Jordon Brito MD) Cholelithiasis and cholecystitis without obstruction (Acute) Hypotension (Acute) Congestive heart failure (Acute) Bacteremia due to Gram-negative bacteria (Acute) Hydronephrosis of left kidney (Acute) Ureterolithiasis (Acute) Dysmetabolic syndrome X (Chronic) Gout (Chronic) Hyperlipemia (Chronic) Hypertension, essential (Chronic) Obesity (Chronic) Hx of appendectomy (Acute) Hypertension (Chronic) Chronic Kidney Disease (Chronic) Kidney stone on left side (Acute) Sprain of finger of right hand (Acute) CKD (chronic kidney disease) stage 2, GFR 60-89 ml/min (Chronic) Benign hypertension with chronic kidney disease, stage II (Chronic) Vitamin D deficiency (Chronic) Gout due to renal impairment (Chronic) Hyperkalemia, diminished renal excretion (Acute) Nephrolithiasis (Chronic) Gout attack (Acute) Annual physical exam (Acute) Elevated PSA (Acute) BPH w urinary obs/LUTS (Acute) Prostate cancer (Acute) Medicare annual wellness visit, initial (Acute) Annual physical exam (Acute) Renal calculus, right (Acute) Right flank pain (Acute) Hydronephrosis, right (Acute) Acute urinary retention (Acute) Peripheral vascular disease of lower extremity with ulceration (Acute) Wound of right lower extremity (Acute) Abnormal heart rhythm (Acute) UTI (urinary tract infection) (Acute) CHF (congestive heart failure) (Acute) OSMANY (acute kidney injury) (Acute) Medical History Abnormal heart rhythm Annual physical exam Annual physical exam Benign hypertension with chronic kidney disease, stage II Chronic Kidney Disease CKD (chronic kidney disease) stage 2, GFR 60-89 ml/min Dysmetabolic syndrome X Elevated PSA Gout Gout due to renal impairment Hyperlipemia Hypertension Hypertension, essential Kidney stone on left side Medicare annual wellness visit, initial Nephrolithiasis Obesity Sprain of finger of right hand Vitamin D deficiency Wound of right lower extremity Surgical History History of surgery Finger- 07/2019 Hx of appendectomy Family History brother Malignant neoplasm Cardiac disease Social History marital status: single alcohol intake frequency: former alcohol drinker MEDS/ALLERGIES Home Medications and Allergies Home Medications Medication Instructions Recorded Confirmed Type cholecalciferol (vitamin D3) 50 2,000 unit PO QDAY cap 07/28/16 03/13/21 History mcg (2,000 unit) capsule [id number]-cuw-nrdxk acid 300 1 tab PO QDAY tab 07/28/16 03/13/21 History mcg-lycopene 600 mcg-lutein 300 mcg tablet (Centrum Silver Men) vit C,E,zinc,copper-hiied7q 250 1 cap PO QDAY 05/02/18 03/13/21 History mg-lutein 5 mg-zeaxanthin 1 mg capsule (Ocuvite Adult 50 Plus) flaxseed 1,000 mg capsule 1,200 mg PO BID cap 08/22/19 03/13/21 History bicalutamide 50 mg tablet (Casodex) 50 mg PO QDAY #30 tab 04/06/20 03/13/21 Rx omega-3 fatty acids 1,000 mg 1,200 mg PO QDAY cap 06/09/20 03/13/21 History capsule (Fish Oil Concentrate) ramipril 10 mg capsule 10 mg PO QDAY #90 cap 07/08/20 03/13/21 Rx amlodipine 5 mg tablet 5 mg PO QHS #90 tab 08/10/20 03/13/21 Rx hydrochlorothiazide 25 mg tablet 25 mg PO QDAY #90 tab 08/10/20 03/13/21 Rx hydrocodone 5 mg-acetaminophen 325 1 tab PO Q6H PRN #8 tab 12/31/20 03/13/21 Rx mg tablet pravastatin 20 mg tablet 20 mg PO QHS #90 tab 03/10/21 03/13/21 Rx Allergies Allergy/AdvReac Type Severity Reaction Status Date / Time No Known Drug Allergies Allergy Verified 03/01/21 11:28 Physical Examination Vital Signs Vital signs: Temp Pulse Resp BP Pulse Ox 97.6 F 87 17 96/58 96 03/13/21 16:04 03/13/21 08:03 03/13/21 16:04 03/13/21 16:04 03/13/21 16:04 General physical appearance General physical exam: well developed, well nourished, no distress, no pain, chronically ill and obese Eyes Eye exam: PERRL and normal ocular movement ENT ENT exam: normal nares and decreased hearing Head Head exam IM: Present atraumatic, normal inspection and normocephalic Neck Neck exam: no masses, no bruits, trachea midline, no lymphadenopathy and no venous distension Cardiovascular Cardiovascular exam IM: Present irregular rhythm, RRR, +S1 and +S2; Absent JVD Respiratory Respiratory exam: normal expansion and normal respiratory effort Respiratory exam: rales: bilateral Abdomen Abdomen: Present soft, non tender and bowel sounds; Absent distended Integumentary Integumentary: Present no rash, no growths and other (Bilateral moderately severe stasis edema with ulceration on the left) Neurologic Neurologic: Present normal coordination and normal sensation Musculoskeletal Musculoskeletal: Present normal gait and normal posture Psychiatric Psychiatric: Present oriented to time, oriented to person, oriented to place, speech is normal and memory intact Results Labs Result diagrams: 03/13/21 05:30 03/13/21 05:30 Labs: Abnormal lab results 03/12/21 03/13/21 03/13/21 Range/Units 20:16 05:30 05:30 WBC 27.9 H (4.5-11.0) K/mcL RBC 2.88 L (4.63-6.08) M/mcL Hgb 8.6 L (13.7-17.5) g/dL Hct 27.3 L (40.1-51.0) % RDW 18.7 H (11.5-14.5) % MPV 10.7 H (7.4-10.4) fL Band Neutrophils % 14 H (0-10) % Lymphocytes % 7 L (15-49) % RBC Morphology Abnormal A (Normal) Anisocytosis 2+ A (None Seen) BUN 25 H (8-23) mg/dL Creatinine 2.2 H (0.7-1.2) mg/dL Glucose (70-105) mg/dL Uric Acid 8.1 H (2.5-8.0) mg/dL Calcium 8.2 L (8.6-10.4) mg/dL Magnesium 1.5 L (1.6-2.5) mg/dL Iron 6 L (61-157) ug/dL TIBC 136 L (228-428) ug/dl Transferrin % Sat 4 L (20-50) % Albumin 2.4 L (3.2-5.2) gm/dL Globulin 4.3 H (2.2-3.7) gm/dL Albumin/Globulin Ratio 0.6 L (1.0-2.3) 03/13/21 Range/Units 05:30 WBC (4.5-11.0) K/mcL RBC (4.63-6.08) M/mcL Hgb (13.7-17.5) g/dL Hct (40.1-51.0) % RDW (11.5-14.5) % MPV (7.4-10.4) fL Band Neutrophils % (0-10) % Lymphocytes % (15-49) % RBC Morphology (Normal) Anisocytosis (None Seen) BUN 28 H (8-23) mg/dL Creatinine 2.6 H (0.7-1.2) mg/dL Glucose 69 L (70-105) mg/dL Uric Acid (2.5-8.0) mg/dL Calcium 8.2 L (8.6-10.4) mg/dL Magnesium (1.6-2.5) mg/dL Iron (61-157) ug/dL TIBC (228-428) ug/dl Transferrin % Sat (20-50) % Albumin 2.5 L (3.2-5.2) gm/dL Globulin (2.2-3.7) gm/dL Albumin/Globulin Ratio (1.0-2.3) Diabetes panel 03/12/21 03/13/21 Range/Units 20:16 05:30 Sodium 139 140 (133-145) mmol/L Potassium 4.0 4.2 (3.3-5.1) mmol/L Chloride 104 105 (96-108) mmol/L Carbon Dioxide 24 22 (22-30) mmol/L BUN 25 H 28 H (8-23) mg/dL Creatinine 2.2 H 2.6 H (0.7-1.2) mg/dL Glucose 88 69 L (70-105) mg/dL Calcium 8.2 L 8.2 L (8.6-10.4) mg/dL AST 36 (<40) U/L ALT 10 (<40) U/L Alkaline Phosphatase 60 (39-117) U/L Total Protein 6.7 (5.9-8.4) gm/dL Albumin 2.4 L 2.5 L (3.2-5.2) gm/dL Triglycerides 88 (<150) mg/dL Calcium panel 03/12/21 03/13/21 Range/Units 20:16 05:30 Calcium 8.2 L 8.2 L (8.6-10.4) mg/dL Phosphorus 4.5 3.9 (2.5-4.5) mg/dL Albumin 2.4 L 2.5 L (3.2-5.2) gm/dL Pituitary panel 03/12/21 03/13/21 Range/Units 20:16 05:30 Sodium 139 140 (133-145) mmol/L Potassium 4.0 4.2 (3.3-5.1) mmol/L Chloride 104 105 (96-108) mmol/L Carbon Dioxide 24 22 (22-30) mmol/L BUN 25 H 28 H (8-23) mg/dL Creatinine 2.2 H 2.6 H (0.7-1.2) mg/dL Glucose 88 69 L (70-105) mg/dL Calcium 8.2 L 8.2 L (8.6-10.4) mg/dL Adrenal panel 03/12/21 03/13/21 Range/Units 20:16 05:30 Sodium 139 140 (133-145) mmol/L Potassium 4.0 4.2 (3.3-5.1) mmol/L Chloride 104 105 (96-108) mmol/L Carbon Dioxide 24 22 (22-30) mmol/L BUN 25 H 28 H (8-23) mg/dL Creatinine 2.2 H 2.6 H (0.7-1.2) mg/dL Glucose 88 69 L (70-105) mg/dL Calcium 8.2 L 8.2 L (8.6-10.4) mg/dL Total Bilirubin 0.3 (0.1-1.0) mg/dL AST 36 (<40) U/L ALT 10 (<40) U/L Alkaline Phosphatase 60 (39-117) U/L Total Protein 6.7 (5.9-8.4) gm/dL Albumin 2.4 L 2.5 L (3.2-5.2) gm/dL All other labs normal. A/P Assessment and plan (1) Ureterolithiasis: Status: Acute (2) Hydronephrosis of left kidney: Status: Acute (3) Bacteremia due to Gram-negative bacteria: Status: Acute (4) Congestive heart failure: Status: Acute (5) Hypotension: Status: Acute (6) Cholelithiasis and cholecystitis without obstruction: Status: Acute Narrative A/P Narrative: Though patient has documented gallstones there is no evidence of acute inflammation and there is no lab findings to support choledocholithiasis. His primary problem is gram-negative sepsis due to obstructed ureter with hydronephrosis. Plans are underway for him to be transferred to a tertiary center for urologic intervention. His gallstones can be addressed at a later date. Time Spent With Patient Time: Total time spent is greater than 50% in coordination of care (as documented) at patient's floor/unit and/or counseling patient:
--- NOTE | 2021-03-13 20:18 | Discharge Summary ---
Discharge Provider Provider Patient information: Note initiated : 03/14/21 at 8:13 pm Service Date, if different from initiated Date: [] Patient: Vinnie Alatorre 85 y/o M admitted on 03/12/21 for shortness of breath, hypoxia. Chief Complaint: [] Date of admission: 03/12/21 19:29 Discharge date: 03/14/21 Primary care physician: Akbar Piña MD Consults: 03/12/21 Consult to Physician [CONS] Stat Comment: Consulting Provider: Frank Yates Reason For Exam: Physician to Consult 03/13/21 15:18 Consult to Physician [CONS] Routine Comment: Cholecytitis Consulting Provider: Jordon Brito Reason For Exam: Physician to Consult Discharge Meds Discharge Medications Home Medications cholecalciferol (vitamin D3) 50 mcg (2,000 unit) capsule 2,000 unit PO QDAY cap 07/28/16 [History Confirmed 03/13/21 Last Taken 03/12/21 08:00] zxzwpqsj-lrx-ppppn acid 300 mcg-lycopene 600 mcg-lutein 300 mcg tablet (Centrum Silver Men) 1 tab PO QDAY tab 07/28/16 [History Confirmed 03/13/21 Last Taken 03/12/21 08:00] vit C,E,zinc,copper-yubpx6m 250 mg-lutein 5 mg-zeaxanthin 1 mg capsule (Ocuvite Adult 50 Plus) 1 cap PO QDAY 05/02/18 [History Confirmed 03/13/21 Last Taken 03/12/21 08:00] flaxseed 1,000 mg capsule 1,200 mg PO BID cap 08/22/19 [History Confirmed 03/13/21 Last Taken 03/12/21 18:00] bicalutamide 50 mg tablet (Casodex) 50 mg PO QDAY #30 tab 04/06/20 [Rx Confirmed 03/13/21 Last Taken 03/12/21 08:00] omega-3 fatty acids 1,000 mg capsule (Fish Oil Concentrate) 1,200 mg PO QDAY cap 06/09/20 [History Confirmed 03/13/21 Last Taken 03/12/21 08:00] ramipril 10 mg capsule 10 mg PO QDAY #90 cap 07/08/20 [Rx Confirmed 03/13/21 Last Taken 03/12/21 08:00] amlodipine 5 mg tablet 5 mg PO QHS #90 tab 08/10/20 [Rx Confirmed 03/13/21 Last Taken 03/11/21 18:00] hydrochlorothiazide 25 mg tablet 25 mg PO QDAY #90 tab 08/10/20 [Rx Confirmed 03/13/21 Last Taken 03/12/21 08:00] hydrocodone 5 mg-acetaminophen 325 mg tablet 1 tab PO Q6H PRN #8 tab 12/31/20 [Rx Confirmed 03/13/21 Last Taken 03/12/21 08:00] pravastatin 20 mg tablet 20 mg PO QHS #90 tab 03/10/21 [Rx Confirmed 03/13/21 Last Taken 03/11/21 18:00] COURSE Hospital Course Hospital course: Mr. 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 The patient follows with urology and was last seen in clinic in February 2021 and was doing well at that time per the notes. The patient also follows with Dr. Hines in the wound care for his lower extremity wounds. The patient lives alone and spends his time working on wood projects and vehicles. The patient presented to the ED because he was not feeling well for the last few days. His neighbors called EMS because he slid out of his recliner. EMS noted the patient to be hypoxic with a s aturation of 82% on room air. In the ED the patient was found to be septic with a fever, hypotension, leukocytosis and an acute on chronic kidney disease injury. The patient does not have any complaints except he generally feels weak and has had urinary incontinence recently. Urinalysis was suggestive of a UTI. Chest xray showed mild congestive heart failure. Lactic acid was 2.4. The patient received Zosyn, IV fluid and oxygen supplementation via nasal canula. Hospital medicine was consulted to admit the patient. 03/13 Urine culture and 2/2 blood cultures growing gram negative bacillus, CT KUB (no contrast) showed two left ureteral stones and left hydronephrosis as well as cholelithiasis and findings suspicious for cholecystitis and choledocholithiasis. Point of care ultrasound exam was done and did not elicit a sonographic Braden's signs so doubt the patient actually has acute cholecystitis. Liver function tests also do not suggest an acute biliary pathology/infection. 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 Discussed with urology, Dr. Freitas, who recommended transfer to a higher level of care for urgent intervention either by urology or interventional radiology. Multiple attempts were made for transfer to a higher level of care. The patient is currently on Ceftriaxone and Flagyl, Flagyl was added for possible cholecytisis. 03/14 The patient was accepted to the intensive care unit at [facility] in [place], [place]. He will go by flight, he will need urgent urology consult for the obstructed left ureter. Below is the last assessment and plan for reference. 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 This is complicated by gram negative bacteremia, acute on chronic kidney disease injury, acute congestive heart failure requiring oxygen supplementation, and a type II NC secondary to sepsis. Workup also revealed cholelithiasis with radiologic evidence of cholecystitis and choledocholithiasis. #Severe sepsis secondary to pyelonephritis #Gram negative bacteremia secondary to pyelonephritis #Cholelithiasis with radiologic evidence of cholecystitis #Choledocholithiasis #Acute hypoxic respiratory failure secondary to heart failure (unspecified) #Acute on chronic kidney disease injury #Mildly elevated troponin secondary to type II NC due to sepsis #Generalized weakness secondary to sepsis #Left lower extremity wound (less likely to be the source of sepsis) #Essential hypertension #Hyperlipidemia #History of Mobitz II #History of renal stones #History of gout #Prostate cancer on androgen deprivation therapy Plan: -Ceftriaxone and Flagyl for UTI as well as possible cholecystitis -Follow urine and blood cultures. -Transfer to high level of care for obstructing ureteral stones in the setting of UTI -Follow renal function and urine output. -Monitor volume status. -TTE results pending. -Hold home antihypertensives. -Continue home Pravastatin and Bicalutamide. 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 Discharge diagnosis: Severe sepsis secondary to pyelonephritis Secondary discharge diagnosis: Left hydronephrosis secondary to obstructing ureteral stone Time Spent with Patient Time attestation: Total time spent providing and/or coordinating discharge services: EXAM Constitutional Vitals: Temp Pulse Resp BP Pulse Ox 98.5 F 87 19 117/57 97 03/13/21 19:02 03/13/21 08:03 03/13/21 19:02 03/13/21 19:02 03/13/21 19:02 Discharge Data Data Completed and Pending Labs on day of discharge: Labs from last 24 hours 03/13/21 03/13/21 03/13/21 19:58 05:30 05:30 WBC RBC Hgb Hct MCV MCH MCHC RDW Plt Count MPV Seg Neutrophils % Band Neutrophils % Lymphocytes % Monocytes % (Manual) Platelet Estimate RBC Morphology Anisocytosis Sodium Pending 140 Potassium Pending 4.2 Chloride Pending 105 Carbon Dioxide Pending 22 Anion Gap Pending 13.0 BUN Pending 28 H Creatinine Pending 2.6 H GFR Calculation Pending 21 Glucose Pending 69 L Uric Acid Pending Calcium Pending 8.2 L Phosphorus Pending 3.9 Magnesium Pending Iron 6 L TIBC 136 L Unsat Iron Binding 130 Transferrin % Sat 4 L Total Bilirubin Pending Direct Bilirubin Pending GGT Pending AST Pending ALT Pending Alkaline Phosphatase Pending Lactate Dehydrogenase Pending Total Protein Pending Albumin Pending 2.5 L Globulin Pending Albumin/Globulin Ratio Pending Triglycerides Pending 03/13/21 03/12/21 05:30 20:16 WBC 27.9 H RBC 2.88 L Hgb 8.6 L Hct 27.3 L MCV 94.8 MCH 29.9 MCHC 31.5 RDW 18.7 H Plt Count 263 MPV 10.7 H Seg Neutrophils % 74 Band Neutrophils % 14 H Lymphocytes % 7 L Monocytes % (Manual) 5 Platelet Estimate Normal RBC Morphology Abnormal A Anisocytosis 2+ A Sodium 139 Potassium 4.0 Chloride 104 Carbon Dioxide 24 Anion Gap 11.0 BUN 25 H Creatinine 2.2 H GFR Calculation 26 Glucose 88 Uric Acid 8.1 H Calcium 8.2 L Phosphorus 4.5 Magnesium 1.5 L Iron TIBC Unsat Iron Binding Transferrin % Sat Total Bilirubin 0.3 Direct Bilirubin < 0.2 GGT 14 AST 36 ALT 10 Alkaline Phosphatase 60 Lactate Dehydrogenase 220 Total Protein 6.7 Albumin 2.4 L Globulin 4.3 H Albumin/Globulin Ratio 0.6 L Triglycerides 88 Preliminary micro results at discharge 03/12/21 14:30 Urine Culture - Preliminary Urine - Clean Void Mid-Stream Gram negative bacillus 03/12/21 13:07 Blood Culture - Preliminary Blood Gram negative bacillus 03/12/21 13:00 Blood Culture - Preliminary Blood Gram negative bacillus Discharge Plan Patient/Caregiver Discharge Instructions Activity: increase activity as tolerated Diet: NPO Prescriptions: Continued bicalutamide [Casodex] 50 mg tablet 50 mg PO QDAY Qty: 30 12RF ramipril 10 mg capsule 10 mg PO QDAY Qty: 90 6RF amlodipine 5 mg tablet 5 mg PO QHS Qty: 90 6RF hydrochlorothiazide 25 mg tablet 25 mg PO QDAY Qty: 90 6RF pravastatin 20 mg tablet 20 mg PO QHS Qty: 90 1RF cholecalciferol (vitamin D3) 2,000 unit capsule 2,000 unit PO QDAY 0RF kkseqvfu-yqo-PW-lycopen-lutein [Centrum Silver Men] 300-600-300 mcg tablet 1 tab PO QDAY 0RF Ocuvite Adult 50 Plus 250-5-1 mg capsule 1 cap PO QDAY 0RF flaxseed 1,000 mg capsule 1,000 mg capsule 1,200 mg PO BID 0RF hydrocodone-acetaminophen 5-325 mg tablet 1 tab PO Q6H PRN (Reason: pain) Qty: 8 0RF omega-3 fatty acids [Fish Oil Concentrate] 1,000 mg capsule 1,200 mg PO QDAY 0RF Follow Up Plan Follow up with: Akbar Piña MD [Primary Care Provider] - Patient Disposition: er [facility] Prognosis: Fair Rehab Potential: Serious Overall status at discharge: patient is not back to baseline Discharge Orders: Discharge Order (Routine); Ordered 03/13/21 Ordered By: Frank KELLY VTE Deep Vein Thrombosis/Pulmonary Embolism Present on Admission: No
[2021-03-13 20:57] LABS: ALT/SGPT 13 U/L (<40); AST/SGOT 44 U/L (<40); Albumin 2.1 gm/dL (3.2-5.2); Albumin/Globulin Ratio 0.5 (1.0-2.3); Alkaline Phosphatase 64 U/L (39-117); Bilirubin,Direct < 0.2 mg/dL (0-0.3); Bilirubin,Total 0.2 mg/dL (0.1-1.0); Blood Urea Nitrogen 32 mg/dL (8-23); Calcium 8.1 mg/dL (8.6-10.4); Carbon Dioxide 22 mmol/L (22-30); Chloride 102 mmol/L (96-108); Globulin 4.4 gm/dL (2.2-3.7); Glomerular Filtration Rate 17; Glucose 108 mg/dL (70-105); Lactate Dehydrogenase 189 U/L (135-225); Phosphorous 4.2 mg/dL (2.5-4.5); Triglycerides 160 mg/dL (<150); Uric Acid 8.1 mg/dL (2.5-8.0)
[2021-03-13] MEDS: SIMVASTATIN 10 MG TABLET PO SCH (21:06)
[2021-03-14] MEDS: metroNIDAZOLE 500 MG/100 ML BAG IV SCH (06:21)
[2021-03-14] MEDS: 0.9 % SODIUM CHLORIDE 10 ML SYRINGE IV SCH (06:22)
[2021-03-14] MEDS: FLAXSEED PO SCH (07:56)
[2021-03-14] MEDS: HEPARIN 5,000 UNIT/ML VIAL SQ SCH (07:56)
[2021-03-14] MEDS: MULTIVIT,THER IRON,CA,FA & MIN 1 TABLET PO SCH (07:56)
[2021-03-14] MEDS: DOCUSATE SODIUM 100 MG CAPSULE PO SCH (07:56)
[2021-03-14] MEDS: BICALUTAMIDE 50 MG TABLET PO SCH (07:56)
[2021-03-14 09:01] LABS: Hematocrit 26.8 % (40.1-51.0); Hemoglobin 8.3 g/dL (13.7-17.5); Mean Platelet Volume 10.9 fL (7.4-10.4); Platelet Count 205 K/mcL (140-440); RBC 2.82 M/mcL (4.63-6.08); Red Cell Distribution Width 18.5 % (11.5-14.5); WBC 22.4 K/mcL (4.5-11.0)
[2021-03-14] MEDS: cefTRIAXone 2 GM in DEXTROSE 5% IN WATER 50 ML IV SCH (09:31)
[2021-03-14 11:15] LABS: Anisocytosis 2+ (None Seen); Band Neutrophils % 5 % (0-10); Lymphocytes % 8 % (15-49); Monocytes % (Manual) 4 % (1-12); Platelet Estimate NORMAL (Normal); RBC Morphology ABNORMAL (Normal); Segmented Neutrophils % 83 % (38-78)
--- NOTE | 2021-03-14 21:11 | EKG ---
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
--- NOTE | 2021-03-14 21:11 | EKG ---
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
--- NOTE | 2021-03-15 07:14 | Emergency Department Note ---
ED Note Addendum Note Addendum: Received phone call from the hospitalist in [facility] who says the patient is admitted to his service and requested additional information on the patient's history. I provided him with the patient's culture results of brief synopsis of his emergency department stay and pertinent laboratory results in order to provide continuity of care for the patient.
== END 2021-03-14 09:30 | disposition short-term general hospital (02) | DRG 871 ==
LOC: ED 12:46 → ICU 19:29
PROVIDERS: ADMIT Internal Medicine; ATTEND Internal Medicine